=== PATIENT | female | born 1990 | race Two or more races ===

== ENCOUNTER 2020-08-23 09:03 | Inpatient (IN) | payer OTHER ==
[~2020-08-23] VITALS: Ht 152.4 cm; Wt 52.2 kg
[2020-08-23] MEDS ORDERED: MILLIPRED5 MG (09:23)
[2020-09-01] MEDS ORDERED: PREDNISONE10 M2 (16:25)
[2020-09-01] MEDS ORDERED: HYDROXYCHLOROQ200 MG (16:25)
[2020-09-01] MEDS ORDERED: CLOBETASOL PROP15 G1 (16:25)
== END 2020-09-09 16:56 | disposition home or self-care (01) | DRG 594 ==
LOC: ER 09:03 → MEDI 15:50
PROVIDERS: ADMIT Internal Medicine; ATTEND Internal Medicine
PROC: 0HBJXZZ Excision of Left Upper Leg Skin, External Approach (ICD-10-PCS; principal; 2020-08-27)
PROC: 0HBJXZZ Excision of Left Upper Leg Skin, External Approach (ICD-10-PCS; 2020-08-31)
PROC: 02HV33Z Insertion of Infusion Device into Superior Vena Cava, Percutaneous Approach (ICD-10-PCS; 2020-09-02)
DX: L97.121 Non-pressure chronic ulcer of left thigh limited to breakdown of skin (principal); L93.2 Other local lupus erythematosus; B96.89 Other specified bacterial agents as the cause of diseases classified elsewhere; E87.6 Hypokalemia; Z20.822 Contact with and (suspected) exposure to COVID-19

== ENCOUNTER 2021-09-08 09:42 | Outpatient (CLI) | payer OTHER ==
[~2021-09-08 09:42] MED LIST: CLOBETASOL PROP15 G1; HYDROXYCHLOROQ200 MG; MILLIPRED5 MG; PREDNISONE10 M2
== END 2021-09-08 09:44 | disposition home or self-care (01) ==
LOC: NUCLEAR 09:42
PROVIDERS: ATTEND Specialist
DX: M81.8 Other osteoporosis without current pathological fracture (principal); M32.19 Other organ or system involvement in systemic lupus erythematosus